=== PATIENT | male | born 1975 | race Caucasian/White ===

== ENCOUNTER 2024-08-02 09:09 | Inpatient (IN) | payer OTHER ==
[2024-08-02 09:30] VITALS: BMI 22.6
[2024-08-02] MEDS ORDERED: MAGNESIUM HYDROX 2400MG/30ML ORAL SUSPENSION 30 ML CUP PO PRN (09:47)
[2024-08-02] MEDS ORDERED: BISMUTH SUBSALICYLATE 524 MG/30 ML PO PRN (09:47)
[2024-08-02] MEDS ORDERED: DICYCLOMINE HCL 10 MG CAPSULE PO PRN (09:47)
[2024-08-02] MEDS ORDERED: NICOTINE POLACRILEX 2 MG LOZENGE BC PRN (09:47)
[2024-08-02] MEDS ORDERED: IBUPROFEN 600 MG TABLET (FP) PO PRN (09:47)
[2024-08-02] MEDS ORDERED: ONDANSETRON *ODT* 4 MG TABLET SL PRN (09:47)
[2024-08-02] MEDS ORDERED: LOPERAMIDE HCL 2 MG CAPSULE PO PRN (09:47)
[2024-08-02] MEDS ORDERED: guaiFENesin 600 MG TABLET.ER (FP) PO PRN (09:47)
[2024-08-02] MEDS ORDERED: POLYETHYLENE GLYCOL (HEALTHYLAX) 3350 17 GM PACKET PO PRN (09:47)
[2024-08-02] MEDS ORDERED: ACETAMINOPHEN 325 MG TABLET (FP) PO PRN (09:47)
[2024-08-02] MEDS ORDERED: MAG HYDROX/AL HYDROX/SIMETH 30 ML UNIT-DOSE CUP PO PRN (09:47)
[2024-08-02] MEDS ORDERED: BENZONATATE 200 MG CAPSULE PO PRN (09:47)
[2024-08-02] MEDS ORDERED: BENZOCAINE/MENTHOL (CHLORASEPTIC ) LOZENGE MM PRN (09:47)
[2024-08-02] MEDS ORDERED: NICOTINE POLACRILEX 2 MG GUM BUC PRN (09:47)
[2024-08-02] MEDS ORDERED: diazePAM 5 MG TABLET ONE (10:33)
[2024-08-02] MEDS ORDERED: PRENATAL VITAMINS W/ FOLIC ACID TABLET (FP) PO ONE (10:33)
[2024-08-02] MEDS: PRENATAL VITAMINS W/ FOLIC ACID TABLET (FP) PO SCH (10:35)
[2024-08-02] MEDS: diazePAM 5 MG TABLET PO SCH (10:35)
[2024-08-02] MEDS: diazePAM 5 MG TABLET PO PRN (19:27)
[2024-08-03] MEDS: THIAMINE 100 MG TABLET PO SCH (00:58)
[2024-08-03] MEDS: MELATONIN 5 MG TABLETS PO SCH (00:58)
[2024-08-03] MEDS: diazePAM 5 MG TABLET PO SCH (05:24)
[2024-08-03 11:24] LABS: HEMATOCRIT 38.4 % (35.4-49); HEMOGLOBIN 12.7 GM/dL (11.7-16.9); MCH 30.1 pg (25.7-33.7); MEAN CELL VOLUME 91.2 fl (80-96); MEAN PLT VOLUME 8.7 fl (7.5-11.1); PLATELET COUNT 283 10^3/uL (134-434); RBC 4.22 M/mm3 (4.00-5.60); RDW 14.2 % (11.9-15.9); WHITE BLOOD COUNT 8.3 K/mm3 (4.0-10.0)
[2024-08-03 11:26] LABS: POTASSIUM 4.2 mmol/L (3.5-5.1)
[2024-08-03 11:31] LABS: CALCIUM 8.8 mg/dL (8.5-10.1)
[2024-08-03 11:32] LABS: ALBUMIN 2.9 g/dl (3.4-5.0); BLOOD UREA NITROGEN 9.8 mg/dL (7-18)
[2024-08-03 11:36] LABS: BILIRUBIN,TOTAL 0.4 mg/dL (0.2-1); CREATININE 0.7 mg/dL (0.55-1.3); TOT PROT 6.3 g/dl (6.4-8.2)
[2024-08-04] MEDS: diazePAM 5 MG TABLET PO SCH (05:49)
[2024-08-05] MEDS: diazePAM 5 MG TABLET PO ONE (05:23)
[2024-08-05] MEDS: METHOCARBAMOL 500 MG TABLET PO PRN (10:05)
[2024-08-05] MEDS: IBUPROFEN 400 MG TABLET (FP) PO PRN (21:21)
[2024-08-06 05:59] VITALS: RESP 17
[2024-08-06 10:28] VITALS: BP 110/70; PULSE 60; TEMP 97.9
== END 2024-08-06 11:38 | disposition other institution (70) | DRG 774 ==
LOC: YASAS 09:09 → Y3N 10:55
PROVIDERS: ADMIT Allergy & Immunology; ATTEND Surgery
PROC: HZ2ZZZZ Detoxification Services for Substance Abuse Treatment (ICD-10-PCS; principal; 2024-08-02)
DX: F10.230 Alcohol dependence with withdrawal, uncomplicated (principal); F14.20 Cocaine dependence, uncomplicated; F13.20 Sedative, hypnotic or anxiolytic dependence, uncomplicated; F17.210 Nicotine dependence, cigarettes, uncomplicated; F41.9 Anxiety disorder, unspecified; R56.1 Post traumatic seizures; Z87.820 Personal history of traumatic brain injury
CPT/HCPCS: 36415; 80053; 80305; 80307; 85027; 86780; 93005; 93010

== ENCOUNTER 2024-08-06 11:40 | Inpatient (IN) | payer OTHER ==
[2024-08-06] MEDS ORDERED: POLYETHYLENE GLYCOL (HEALTHYLAX) 3350 17 GM PACKET PO PRN (14:05)
[2024-08-06] MEDS ORDERED: ACETAMINOPHEN 325 MG TABLET (FP) PO PRN (14:05)
[2024-08-06] MEDS ORDERED: guaiFENesin 600 MG TABLET.ER (FP) PO PRN (14:05)
[2024-08-06] MEDS ORDERED: LOPERAMIDE HCL 2 MG CAPSULE PO PRN (14:05)
[2024-08-06] MEDS ORDERED: BENZONATATE 200 MG CAPSULE PO PRN (14:05)
[2024-08-06] MEDS ORDERED: NALOXONE HCL 0.4 MG/ML VIAL IVPUSH PRN (14:05)
[2024-08-06] MEDS ORDERED: IBUPROFEN 400 MG TABLET (FP) PO PRN (14:05)
[2024-08-06] MEDS ORDERED: MAG HYDROX/AL HYDROX/SIMETH 30 ML UNIT-DOSE CUP PO PRN (14:05)
[2024-08-06] MEDS ORDERED: MAGNESIUM HYDROX 2400MG/30ML ORAL SUSPENSION 30 ML CUP PO PRN (14:05)
[2024-08-06] MEDS ORDERED: BENZOCAINE/MENTHOL (CHLORASEPTIC ) LOZENGE MM PRN (14:05)
[2024-08-06] MEDS ORDERED: NALOXONE (NARCAN) HCL 4 MG/0.1 ML SPRAY NS PRN (14:05)
[2024-08-06] MEDS: METHOCARBAMOL 500 MG TABLET PO PRN (18:27)
[2024-08-06] MEDS: hydrOXYzine PAMOATE 25 MG CAPSULE (FP) PO PRN (21:48)
[2024-08-06] MEDS: IBUPROFEN 600 MG TABLET (FP) PO PRN (21:48)
[2024-08-06] MEDS: THIAMINE 100 MG TABLET PO SCH (21:49)
[2024-08-06] MEDS: MELATONIN 5 MG TABLETS PO SCH (21:49)
[2024-08-07] MEDS: PRENATAL VITAMINS W/ FOLIC ACID TABLET (FP) PO SCH (10:02)
[2024-08-08 12:51] VITALS: BP 110/78; PULSE 74; RESP 17; TEMP 97.5
[2024-08-08] MEDS: NALOXONE (NYS OPIOID OVERDOSE PROGRAM) 4 MG/0.1 ML SPRAY NS ONE (14:07)
== END 2024-08-08 14:05 | disposition left against medical advice (07) | DRG 770 ==
LOC: YASAS 11:40 → Y3NR 11:41 → Y3W 08-08 09:48
PROVIDERS: ADMIT Surgery; ATTEND Psychiatry & Neurology Pain Medicine
PROC: HZ42ZZZ Group Counseling for Substance Abuse Treatment, Cognitive-Behavioral (ICD-10-PCS; principal; 2024-08-06)
DX: F10.20 Alcohol dependence, uncomplicated (principal); F14.20 Cocaine dependence, uncomplicated; F17.210 Nicotine dependence, cigarettes, uncomplicated; F41.9 Anxiety disorder, unspecified; Z86.59 Personal history of other mental and behavioral disorders
CPT/HCPCS: 36415; 86803; 87811